=== PATIENT | male | born 1980 | race American Indian/Alaskan Native ===

== ENCOUNTER 2018-12-17 12:04 | Emergency (ER) | payer SELFPAY ==
--- NOTE | 2018-12-17 12:53 | Event Note ---
ED Screening Note Date of service: 12/17/18 Time: 12:49 ED Screening Note: 37 y/o male comes in for right testicle pain. Having pressure when he urinates time 1 week. Sexually active with female ! partner in the last 2 weeks. Denies any penile discharge. This initial assessment/diagnostic orders/clinical plan/treatment(s) is/are subject to change based on patients health status, clinical progression and re- assessment by fellow clinical providers in the ED. Further treatment and workup at subsequent clinical providers discretion. Patient/guardian urged not to elope from the ED as their condition may be serious if not clinically assessed and managed. Initial orders include:
--- NOTE | 2018-12-17 13:34 | Ultrasound Report ---
SCROTAL ULTRASOUND WITH DOPPLER HISTORY: right testicle pain COMPARISON: None. TECHNIQUE: Grayscale, color and spectral Doppler images were obtained of the scrotum. FINDINGS: RIGHT: Right testicle: No significant abnormality. No mass. Right testicular size: 3.6 x 1.8 x 2.8 cm. Right epididymis: A tiny right epididymal head cyst measures 2 mm. The remainder of the right epididy mis is unremarkable. LEFT: Left testicle: No significant abnormality. No mass. Left testicular size: 3.6 x 1.5 x 2.4 cm. Left epididymis: No significant abnormality. Additional findings: No significant hydrocele or varicocele Spectral Doppler waveforms demonstrate arterial flow to both testicles. IMPRESSION: 2 mm right epididymal head cyst. Otherwise, unremarkable exam. Signer Name: Ze Montero Jr, MD Signed: 12/17/2018 1:29 PM Workstation Name: [id number]
--- NOTE | 2018-12-17 13:52 | Emergency Department Report ---
ED Male HPI - General Chief complaint: Abdominal Pain Stated complaint: LOWER PAIN Time Seen by Provider: 12/17/18 12:49 Source: patient Mode of arrival: Ambulatory Limitations: No Limitations - History of Present Illness Initial comments: pt is a 37-year-old male presents to emergency room with complaints of bilateral testicular pain for 2 weeks. He has associated dysuria. He denies any penile discharge, testicular swelling, nausea, vomiting, fever, chills, lesions or blisters on the penis. States he is sexually active with one woman. States his partner has had infidelity in their relationship before. States that he has an STD history of Chlamydia which he received treatment for several years ago. He denies any other past medical history or allergies medications. - Related Data Allergies Allergy/AdvReac Type Severity Reaction Status Date / Time No Known Allergies Allergy Unverified 12/17/18 12:07 ED Review of Systems ROS: Stated complaint: LOWER PAIN Other details as noted in HPI Comment: All other systems reviewed and negative ED Past Medical Hx - Past Medical History Previous Medical History?: No - Surgical History Past Surgical History?: Yes Additional Surgical History: surgery left wrist. - Social History Smoking Status: Never Smoker Substance Use Type: None ED Physical Exam - General Limitations: No Limitations General appearance: alert, in no apparent distress - Head Head exam: Present: atraumatic, normocephalic - Eye Eye exam: Present: normal appearance - ENT ENT exam: Present: mucous membranes moist - Respiratory Respiratory exam: Present: normal lung sounds bilaterally. Absent: respiratory distress, wheezes, rales, rhonchi, stridor, chest wall tenderness, accessory muscle use, decreased breath sounds, prolonged expiratory - Cardiovascular Cardiovascular Exam: Present: regular rate, normal rhythm, normal heart sounds. Absent: systolic murmur, diastolic murmur, rubs, gallop - GI/Abdominal GI/Abdominal exam: Present: soft, normal bowel sounds. Absent: distended, tenderness, guarding, rebound, rigid - exam: Present: other (pt defered ) - Neurological Exam Neurological exam: Present: alert, oriented X3 - Psychiatric Psychiatric exam: Present: normal affect, normal mood - Skin Skin exam: Present: warm, dry, intact ED Course Vital Signs 12/17/18 12/17/18 12:34 15:00 Temperature 98.8 F 98.5 F Pulse Rate 93 H 71 Respiratory 16 14 Rate Blood Pressure 152/103 Blood Pressure 142/104 [Left] O2 Sat by Pulse 99 100 Oximetry ED Medical Decision Making - Radiology Data Radiology results: report reviewed SCROTAL ULTRASOUND WITH DOPPLER HISTORY: right testicle pain COMPARISON: None. TECHNIQUE: Grayscale, color and spectral Doppler images were obtained of the scrotum. FINDINGS: RIGHT: Right testicle: No significant abnormality. No mass. Right testicular size: 3.6 x 1.8 x 2.8 cm. Right epididymis: A tiny right epididymal head cyst measures 2 mm. The remainder of the right epididymis is unremarkable. LEFT: Left testicle: No significant abnormality. No mass. Left testicular size: 3.6 x 1.5 x 2.4 cm. Left epididymis: No significant abnormality. Additional findings: No significant hydrocele or varicocele Spectral Doppler waveforms demonstrate arterial flow to both testicles. IMPRESSION: 2 mm right epididymal head cyst. Otherwise, unremarkable exam. Signer Name: Ze Almendarez Jr, MD Signed: 12/17/2018 1:29 PM Workstation Name: [id number] Transcribed By: TTR Dictated By: ZE ALMENDAREZ JR, MD Electronically Authenticated By: ZE ALMENDAREZ JR, MD Signed Date/Time: 12/17/18 1329 - Medical Decision Making pt is a 37-year-old male presents to emergency room with complaints of bilateral testicular pain for 2 weeks. He has associated dysuria. He denies any penile discharge, testicular swelling, nausea, vomiting, fever, chills, lesions or blisters on the penis. States he is sexually active with one woman. States his partner has had infidelity in their relationship before. States that he has an STD history of Chlamydia which he received treatment for several years ago. He denies any other past medical history or allergies medications. vitals with elevated BP otherwise normal. testicular US: 2 mm right epididymal head cyst. Otherwise, unremarkable exam. UA with WBCs and trace leukocyte esterase. G/C sent from the urine. Discussed results with patient and advised patient to follow-up with a urologist. Patient was prophylactically treated for G/C with azithromycin and ceftriaxone. advised pt to please go to medical records in one week for results of your tests, you have been treated for both of these today. Please follow-up with a urologist. please follow-up with the [facility] for further STD testing. Abstain from sexual intercourse for 10 days. Please have your partner tested and treated as well. Return to the emergency room for any new or worsening symptoms. Also discussed with patient about the elevation in his blood pressure. advised patient to keep a little pressure log take his blood pressure 3 times a day. eat a low-sodium diet. he states that he does have a primary care doctor that he can follow up with regarding his blood pressure. Critical care attestation.: If time is entered above; I have spent that time in minutes in the direct care of this critically ill patient, excluding procedure time. ED Disposition Clinical Impression: Cyst of epididymis, Dysuria, Testicle pain Disposition: TO HOME OR SELFCARE Is pt being admited?: No Does the pt Need Aspirin: No Condition: Stable Instructions: Sexually Transmitted Diseases (ED), Safe Sex (ED), Testicle Pain (ED), Dysuria (ED) Additional Instructions: Please go to medical records in one week for results of your tests, you have been treated for both of these today. Please follow-up with a urologist. please follow-up with the [facility] for further STD testing. Abstain from sexual intercourse for 10 days. Please have your partner tested and treated as well. Return to the emergency room for any new or worsening symptoms. Referrals: MARCELO KING MD [Staff Physician] - 2-3 Days [facility] [Outside] - 2-3 Days Time of Disposition: 14:21 Print Language: OCCITAN
[2018-12-17 14:15] LABS: Bilirubin,Urine NEG (Negative); Blood,Urine SM (Negative); Color,Urine Yellow (Yellow); Mucus,Urine FEW /HPF; Protein,Urine <15 mg/dL mg/dL (Negative)
[2018-12-17] MEDS ORDERED: AZITHROMYCIN 1 GM ORAL PWDR PACKET PO ONE (14:17)
[2018-12-17] MEDS ORDERED: LIDOCAINE-MPF (1%) 10 MG/1 ML VIAL 5 ML INFILTRATI ONE (14:17)
[2018-12-17 15:00] VITALS: BP 142/104
== END 2018-12-17 15:11 | disposition home or self-care (01) ==
LOC: ED 12:04
DX: N50.3 Cyst of epididymis (principal); Z98.890 Other specified postprocedural states
CPT/HCPCS: 81001; 87086; 93975; 96372; 99284; J0696

== ENCOUNTER 2020-08-30 18:21 | Emergency (ER) | payer SELFPAY ==
[2020-08-30 19:39] VITALS: BP 140/91
== END 2020-08-30 22:00 | disposition left against medical advice (07) ==
LOC: ED 18:21
DX: R10.9 Unspecified abdominal pain (principal); R05 Cough; R19.7 Diarrhea, unspecified; Z53.21 Procedure and treatment not carried out due to patient leaving prior to being seen by health care provider